=== PATIENT | female | born 1975 | race Caucasian/White ===

== ENCOUNTER 2017-12-26 05:29 | Emergency (ER) | payer BC ==
[~2017-12-26] VITALS: Ht 160 cm; Wt 86.4 kg
[2017-12-26 05:32] VITALS: BP 180/91; PULSE 66; RESP 16; TEMP 97.8; O2SAT 97
[2017-12-26 07:10] LABS: BACTERIA, URINE MOD /hpf; BILIRUBIN, URINE NEG (NEG); BLOOD, URINE MOD (NEG); GLUCOSE,URINE NEG (NEG); KETONE, URINE NEG (NEG); NITRITE,URINE POS (NEG); SQUAMOUS EPITHELIAL CELL URINE 5 /hpf (0-5); URINE COLOR Red (YELLW/STRAW); URINE LEUKOCYTE ESTERASE NEG (NEG)
[2017-12-26] MEDS ORDERED: SODIUM CHLOR 0.9% 1000 ML INJ 1,000 ML IV SCH (07:22)
--- NOTE | 2017-12-26 07:28 | PD ---
HPI Chief Complaint: Abdominal Pain Time Seen by Provider: 07:15 Travel History International Travel<30 days: No Contact w/Intl Traveler<30days: No Traveled to known affect area: No History of Present Illness HPI Patient is a 42 year old female presents to the ER for evaluation of intermittent and sometimes severe right sided flank pain radiating to the RLQ. States she has a history of kidney stones. Endorses nausea w/o vomiting, dysuria. No constipation, diarrhea, vb/vd. Pain started last night gradually becoming more frequent throughout the night. Currently she states the pain has subsided. There is mild, right flank, rates the right lower quadrant, associated with mild nausea, not associated with fever, context as above per [facility] Past Medical History Asthma: Yes Influenza Vaccination: No ?: Not LMP: 2001 Past Surgical History Abdominal Surgery: Yes (GASTRO SLEEVE ) Section: Yes (X3) Hysterectomy: Yes Social History Alcohol Use: No Tobacco Use: No Substance Use: No Allergies-Medications (Allergen,Severity, Reaction): Coded Allergies: No Known Allergies (Unverified , 12/26/17) Reported Meds & Prescriptions Reported Meds & Active Scripts Active Keflex (Cephalexin) 500 Mg Cap 500 Mg PO Q6H 7 Days Review of Systems Except as stated in HPI: all other systems reviewed are Neg Physical Exam Narrative GENERAL: WD/WN obese female in NAD. Quite pleasant and appears well. SKIN: Warm and dry. HEAD: Atraumatic. Normocephalic. EYES: Pupils equal and round. No scleral icterus. No injection or drainage. ENT: No nasal bleeding or discharge. Mucous membranes pink and moist. NECK: Trachea midline. No JVD. CARDIOVASCULAR: Regular rate and rhythm. RESPIRATORY: No accessory muscle use. Clear to auscultation. Breath sounds equal bilaterally. GASTROINTESTINAL: Abdomen soft, non-tender, nondistended. Hepatic and splenic margins not palpable. No cva tenderness. Rovsing sign negative, no rebound no percussive tenderness, psoas and obturator signs negative MUSCULOSKELETAL: Extremities without clubbing, cyanosis, or edema. No obvious deformities. NEUROLOGICAL: Awake and alert. No obvious cranial nerve deficits. Motor grossly within normal limits. Five out of 5 muscle strength in the arms and legs. Normal speech. PSYCHIATRIC: Appropriate mood and affect; insight and judgment normal. Data Data Last Documented VS Vital Signs Date Time Temp Pulse Resp B/P (MAP) Pulse Ox O2 Delivery O2 Flow Rate FiO2 12/26/17 10:04 64 17 139/76 (97) 100 12/26/17 05:32 97.8 Orders Orders Urinalysis - C+S If Indicated (12/26/17 06:04) Ed Urine Pregnancytest Poc (12/26/17 06:04) Urine Culture (12/26/17 06:05) Basic Metabolic Panel (Bmp) (12/26/17 07:22) Complete Blood Count With Diff (12/26/17 07:22) Iv Access Insert/Monitor (12/26/17 07:22) Ecg Monitoring (12/26/17 07:22) Oximetry (12/26/17 07:22) Sodium Chlor 0.9% 1000 Ml Inj (Ns 1000 M (12/26/17 07:22) Sodium Chloride 0.9% Flush (Ns Flush) (12/26/17 07:30) Ketorolac Inj (Toradol Inj) (12/26/17 07:30) Ed Poc Ultrasound (12/26/17 ) Ceftriaxone Inj (Rocephin Inj) (12/26/17 08:45) Ed Discharge Order (12/26/17 09:42) Labs Laboratory Tests Test 12/26/17 06:05 12/26/17 08:11 Urine Color Red Urine Turbidity HAZY Urine pH 5.0 Urine Specific [place] 1.013 Urine Protein 30 mg/dL Urine Glucose (UA) NEG mg/dL Urine Ketones NEG mg/dL Urine Occult Blood MOD Urine Nitrite POS Urine Bilirubin NEG Urine Urobilinogen 4.0 OR GREATER mg/dL Urine Leukocyte Esterase NEG Urine RBC /hpf Urine WBC 3 /hpf Urine Squamous Epithelial Cells 5 /hpf Urine Bacteria MOD /hpf Microscopic Urinalysis Comment CULTURE INDICATED White Blood Count 12.1 TH/MM3 Red Blood Count 5.09 MIL/MM3 Hemoglobin 14.3 GM/DL Hematocrit 43.1 % Mean Corpuscular Volume 84.6 FL Mean Corpuscular Hemoglobin 28.1 PG Mean Corpuscular Hemoglobin Concent 33.2 % Red Cell Distribution Width 14.1 % Platelet Count 262 TH/MM3 Mean Platelet Volume 9.2 FL Neutrophils (%) (Auto) 85.6 % Lymphocytes (%) (Auto) 8.0 % Monocytes (%) (Auto) 5.8 % Eosinophils (%) (Auto) 0.4 % Basophils (%) (Auto) 0.2 % Neutrophils # (Auto) 10.3 TH/MM3 Lymphocytes # (Auto) 1.0 TH/MM3 Monocytes # (Auto) 0.7 TH/MM3 Eosinophils # (Auto) 0.1 TH/MM3 Basophils # (Auto) 0.0 TH/MM3 CBC Comment DIFF FINAL Differential Comment Blood Urea Nitrogen 13 MG/DL Creatinine 0.87 MG/DL Random Glucose 85 MG/DL Calcium Level 9.6 MG/DL Sodium Level 144 MEQ/L Potassium Level 4.1 MEQ/L Chloride Level 108 MEQ/L Carbon Dioxide Level 27.9 MEQ/L Anion Gap 8 MEQ/L Estimat Glomerular Filtration Rate 71 ML/MIN MDM Medical Decision Making Medical Screen Exam Complete: Yes Emergency Medical Condition: Yes Differential Diagnosis UTI, pyelonephritis, kidney stone, appendicitis seems unlikely peer Narrative Course Patient room to the emergency department, she appears well in obvious distress, pain is minimal, given Toradol and pain completely subsided. She does have hematuria with nitrate positive urine probably consistent with pyelonephritis and either a recently passed kidney stone or small kidney stone. Bedside ultrasound showed no hydronephrosis bilateral. The patient was offered CAT scan but after discussion wrist benefits competitions alternatives including radiation exposure versus empiric therapy the patient opts for empiric therapy. I think this is reasonable as that if she does have a kidney stone is very small she is not having any fever and her pain is well controlled. Discussed that if she changes her mind she can return to the emergency pulmonary time. Will prescribe empiric Keflex, she was given a dose of Rocephin in the emergency department Diagnosis Primary Impression: UTI (urinary tract infection) Additional Impressions: Hematuria Renal colic on right side Med/Other Pt SpecificInfo: Prescription(s) given Scripts Cephalexin (Keflex) 500 Mg Cap 500 MG PO Q6H for Infection for 7 Days, #28 CAP 0 Refills Prov: Yusuf Guerra MD 12/26/17 Disposition: 01 DISCHARGE HOME Condition: Stable Yusuf Guerra MD Dec 26, 2017 07:28
[2017-12-26] MEDS ORDERED: SODIUM CHLORIDE 0.9% FLUSH 10 ML FLUSH IV FLUSH PRN (07:30)
[2017-12-26] MEDS ORDERED: KETOROLAC TROMETHAMINE 30 MG/ML (IVP) VIAL IVP ONE (07:30)
[2017-12-26 08:25] VITALS: BP 119/59; PULSE 53; RESP 18; O2SAT 100
[2017-12-26] MEDS ORDERED: cefTRIAXone INJ 1,000 MG in SODIUM CHLORIDE 0.9% INJ 100 ML IV ONE (08:45)
[2017-12-26 08:48] LABS: AUTOMATED NEUTROPHIL # 10.3 TH/MM3 (1.8-7.7); BASOPHIL % 0.2 % (0.0-2.0); EOSINOPHIL # 0.1 TH/MM3 (0-0.4); EOSINOPHIL % 0.4 % (0.0-4.0); HEMATOCRIT 43.1 % (35.0-46.0); HEMOGLOBIN 14.3 GM/DL (11.6-15.3); MEAN CELL VOLUME 84.6 FL (80.0-100.0); MEAN CORPUSCULAR HEMOGLOBIN 28.1 PG (27.0-34.0); MEAN CORPUSCULAR HGB CONC 33.2 % (32.0-36.0); MEAN PLATELET VOLUME 9.2 FL (7.0-11.0); MONO % 5.8 % (0.0-8.0); MONOCYTE # 0.7 TH/MM3 (0-0.9); NEUT % 85.6 % (16.0-70.0); PLATELET COUNT 262 TH/MM3 (150-450); RED BLOOD COUNT 5.09 MIL/MM3 (4.00-5.30); RED CELL DISTRIBUTION WIDTH 14.1 % (11.6-17.2); WHITE BLOOD COUNT 12.1 TH/MM3 (4.0-11.0)
[2017-12-26 09:30] LABS: BICARBONATE 27.9 MEQ/L (21.0-32.0); CALCIUM 9.6 MG/DL (8.5-10.1); CREATININE 0.87 MG/DL (0.50-1.00)
[2017-12-26] MEDS ORDERED: CEPH-460 PO (09:42)
[2017-12-26 10:04] VITALS: BP 139/76
== END 2017-12-26 10:14 | disposition home or self-care (01) ==
LOC: NEPE 05:29
DX: N39.0 Urinary tract infection, site not specified (principal); R31.9 Hematuria, unspecified; N23 Unspecified renal colic
CPT/HCPCS: 80048; 81001; 84703; 85025; 87086; 96361; 96374; 96375; 99284; J0696; J1885; J7030